=== PATIENT | male | born 1945 | race Caucasian/White ===

== ENCOUNTER 2021-12-31 11:43 | Emergency (ER) | payer MEDICARE, BC ==
[~2021-12-31] VITALS: Ht 175.3 cm; Wt 97.5 kg
[~2021-12-31 11:43] MED LIST: ACYC400T5 PO; ALLO100T PO; ASPI-1169 PO; CHOL50004 PO; CYAN100T44 PO; DOXY100T28 PO; LENA10CA PO; OMEG1CAP PO; PANT40TA49 PO; PRED20TA PO; TAMS0.4C34 PO; VITA400C68 PO
[2021-12-31 11:52] VITALS: BP 145/90
--- NOTE | 2021-12-31 11:58 | NUR ---
The patient bibs for c/o R eye injury(hematoma) s/p falling off his bed 2 [address] ago[address] wants head ct per opthalmologist he saw today. The patient is alert and oriented x4. Denies pain. Will continue to monitor the patient.
--- NOTE | 2021-12-31 13:28 | NUR ---
Patient discharged to home in stable condition. Written and verbal after care instructions given. Patient verbalizes understanding of instruction.
== END 2021-12-31 13:28 | disposition home or self-care (01) ==
LOC: ER 11:56
DX: H11.31 Conjunctival hemorrhage, right eye (principal); R51.9 Headache, unspecified; Z79.899 Other long term (current) drug therapy; W01.0XXA Fall on same level from slipping, tripping and stumbling without subsequent striking against object, initial encounter; Y93.89 Activity, other specified; Y92.89 Other specified places as the place of occurrence of the external cause; Y99.8 Other external cause status
CPT/HCPCS: 70450-TC; 70486-TC

== ENCOUNTER 2022-04-03 07:57 | Emergency (ER) | payer MEDICARE, BC ==
[~2022-04-03] VITALS: Ht 175.3 cm; Wt 99.8 kg
--- NOTE | 2022-04-03 08:18 | NUR ---
URINE COLLECTED AND PLACED IN DROP-OFF BIN
[2022-04-03] MEDS ORDERED: IV NS 0.9% 1,000 ML BAG IV ONE (08:30)
[2022-04-03] MEDS ORDERED: KETOROLAC TROMETHAMINE INJ 30 MG/ML VIAL IV ONE (08:30)
[2022-04-03] MEDS ORDERED: KETOROLAC TROMETHAMINE INJ 30 MG/ML VIAL ONE (08:30)
--- NOTE | 2022-04-03 08:53 | NUR ---
BLOOD SAMPLE COLLECTED
--- NOTE | 2022-04-03 08:54 | NUR ---
20 G SL INSERTED IN L AC
[2022-04-03] MEDS ORDERED: ROSU40TA23 PO (08:56)
[2022-04-03] MEDS ORDERED: LORA-259 PO (08:56)
[2022-04-03 09:03] LABS: BASOPHILS % (AUTO) 0.3 % (0.0-2.0); EOSINOPHILS % (AUTO) 0.1 % (0.0-6.0); HEMATOCRIT 35 % (39-51); HEMOGLOBIN 12.1 g/dL (13.5-17.5); LYMPHOCYTES % (AUTO) 14.6 % (20.0-44.0); MEAN CORPUSCULAR HGB CONC 35 g/dl (31.0-36.0); MEAN CORPUSCULAR VOLUME 97 fL (80-96); MONOCYTES # (AUTO) 0.4 K/uL (0.1-1.30); NEUTROPHILS # (AUTO) 5.3 K/uL (1.8-8.9); PLATELET COUNT (AUTO) 114 K/uL (150-450); RED BLOOD CELL COUNT(AUTO) 3.57 MIL/uL (4.5-6.0); WHITE BLOOD COUNT (AUTO) 6.7 K/uL (4.3-11.0)
[2022-04-03 09:04] LABS: BILIRUBIN,URINE NEGATIVE (NEGATIVE); COLOR,URINE YELLOW (YELLOW); LEUKOCYTE ESTERASE ,URINE SMALL (NEGATIVE); NITRITE, URINE POSITIVE (NEGATIVE); PROTEIN,URINE TRACE mg/dl (NEGATIVE); UGLUCOSE NEGATIVE (NEGATIVE); UROBILINOGEN,URINE 0.2 EU/dL (0.2)
[2022-04-03 09:12] LABS: CALCIUM, SERUM 8.8 mg/dL (8.5-10.1); POTASSIUM 4.2 mmol/L (3.5-5.1)
[2022-04-03 09:17] LABS: ALBUMIN 3.8 g/dL (3.4-5.0); BILIRUBIN,DIRECT 0.3 mg/dL (0.0-0.2); BILIRUBIN,TOTAL 1.3 mg/dL (0.2-1.0); TOTAL PROTEIN, SERUM 7.6 g/dL (6.4-8.2)
[2022-04-03 09:21] LABS: BACTERIA,URINE 3+ /HPF (None Seen); WBC,URINE 21-50 /HPF (0-3)
[2022-04-03] MEDS ORDERED: CIPROFLOXACIN HCL 250 MG TABLET PO ONE (10:00)
[2022-04-03] MEDS ORDERED: CIPROFLOXACIN HCL 500 MG TABLET ONE (10:02)
[2022-04-03] MEDS ORDERED: CIPR-262 PO (10:11)
[2022-04-03 10:23] VITALS: BP 115/74
--- NOTE | 2022-04-03 10:24 | NUR ---
Patient discharged to home in stable condition. Written and verbal after care instructions given. Patient verbalizes understanding of instruction. Prescription given. IV line removed.
== END 2022-04-03 10:24 | disposition home or self-care (01) ==
LOC: ER 08:02
DX: N39.0 Urinary tract infection, site not specified (principal); Z79.899 Other long term (current) drug therapy
CPT/HCPCS: 99284; 96374; 71045; 96361; 85025; 80048; 87086; 83605; 80076; 81001; 36415; 85730; J1885; J7030

== ENCOUNTER 2022-04-09 20:20 | Emergency (ER) | payer MEDICARE, BC ==
[~2022-04-09] VITALS: Ht 175.3 cm; Wt 99.8 kg
[~2022-04-09 20:20] MED LIST changes: +CIPR-262 PO; -DOXY100T28 PO; -LENA10CA PO; +LORA-259 PO; -PRED20TA PO; +ROSU40TA23 PO; -TAMS0.4C34 PO
--- NOTE | 2022-04-09 21:50 | NUR ---
BIBWIFE C/O FEVER AND CHILLS. DAY 4 IN TREATMENT FOR ORAL CIPROFLOXACIN. AMBULATORY, PLACED ON BED, AAOX4, BREATHING EVEN AND UNLABORED SATURATING AT 96%RA
--- NOTE | 2022-04-09 22:13 | NUR ---
BLOOD DRAWN AND URINE SAMPLE SENT TO LAB
--- NOTE | 2022-04-09 22:22 | NUR ---
X-RAY TECH. AT BEDSIDE
[2022-04-09 22:23] LABS: BASOPHILS % (AUTO) 0.1 % (0.0-2.0); EOSINOPHILS % (AUTO) 0.1 % (0.0-6.0); HEMATOCRIT 31 % (39-51); HEMOGLOBIN 10.6 g/dL (13.5-17.5); LYMPHOCYTES # (AUTO) 0.5 K/uL (0.8-4.8); LYMPHOCYTES % (AUTO) 10.7 % (20.0-44.0); MEAN CORPUSCULAR HGB CONC 34 g/dl (31.0-36.0); MEAN CORPUSCULAR VOLUME 96 fL (80-96); MONOCYTES # (AUTO) 0.4 K/uL (0.1-1.30); NEUTROPHILS # (AUTO) 4.2 K/uL (1.8-8.9); NEUTROPHILS % (AUTO) 82.1 % (43.0-81.0); PLATELET COUNT (AUTO) 91 K/uL (150-450); RED BLOOD CELL COUNT(AUTO) 3.21 MIL/uL (4.5-6.0); WHITE BLOOD COUNT (AUTO) 5.1 K/uL (4.3-11.0)
[2022-04-09 22:31] LABS: BILIRUBIN,URINE NEGATIVE (NEGATIVE); COLOR,URINE YELLOW (YELLOW); LEUKOCYTE ESTERASE ,URINE MODERATE (NEGATIVE); NITRITE, URINE POSITIVE (NEGATIVE); PROTEIN,URINE TRACE mg/dl (NEGATIVE); UGLUCOSE NEGATIVE (NEGATIVE)
[2022-04-09 22:40] LABS: ALANINE AMINOTRANSFERASE 69 U/L (12-78); ALBUMIN 3.4 g/dL (3.4-5.0); ALKALINE PHOSPHATASE 84 U/L (46-116); ASPARTATE AMINOTRANSFERASE 29 U/L (15-37); BILIRUBIN,DIRECT 0.2 mg/dL (0.0-0.2); BILIRUBIN,TOTAL 0.7 mg/dL (0.2-1.0); CALCIUM, SERUM 8.4 mg/dL (8.5-10.1); CARBON DIOXIDE 30 mmol/L (21-32); CHLORIDE 100 mmol/L (98-107); CREATININE 0.9 mg/dL (0.6-1.3); GLUCOSE 108 mg/dL (74-106); POTASSIUM 4.2 mmol/L (3.5-5.1); SODIUM SERUM 135 mmol/L (136-145); TOTAL PROTEIN, SERUM 7.3 g/dL (6.4-8.2); UREA NITROGEN, BLOOD 16 mg/dL (7-18)
[2022-04-09 22:51] VITALS: BP 113/68
[2022-04-10] MEDS ORDERED: NITROFURANTOIN/MONOHYDRATE MACROCRYSTALS 100 MG CAPSULE ONE (00:23)
[2022-04-10] MEDS: NITROFURANTOIN/MONOHYDRATE MACROCRYSTALS 100 MG CAPSULE PO ONE (00:25)
[2022-04-10] MEDS ORDERED: NITR100C PO (00:26)
--- NOTE | 2022-04-10 01:03 | NUR ---
IV CANNULA REMOVED
--- NOTE | 2022-04-10 01:03 | NUR ---
Patient discharged to home in stable condition. Written and verbal after care instructions given. Patient verbalizes understanding of instruction.
[2022-04-10 07:22] LABS: BACTERIA,URINE Few /HPF (None Seen); RBC,URINE NONE SEEN /HPF (0-2)
[2022-04-10 11:48] LABS: LYMPHOCYTES % (MANUAL) 16 % (16-48); MONOCYTES % (MANUAL) 5 % (0-11.0); NEUTROPHILS % (MANUAL) 79 (42-76)
== END 2022-04-10 01:39 | disposition home or self-care (01) ==
LOC: ER 20:31
DX: N39.0 Urinary tract infection, site not specified (principal); Z79.899 Other long term (current) drug therapy
CPT/HCPCS: 36415; 71045-TC; 80048-TC; 80076-TC; 81001; 83605-TC; 84484-TC; 85025-TC; 85730-TC; 87040-TC; 87086-TC; 87186-TC

== ENCOUNTER 2022-10-02 12:54 | Emergency (ER) | payer MEDICARE, BC ==
[~2022-10-02 12:54] MED LIST changes: +NITR100C PO
--- NOTE | 2022-10-02 13:19 | NUR ---
called to triage,admitting said that patient left after signing in
== END 2022-10-02 13:25 | disposition left against medical advice (07) ==
LOC: ER 12:58
DX: Z53.21 Procedure and treatment not carried out due to patient leaving prior to being seen by health care provider (principal)

== ENCOUNTER 2023-04-18 23:25 | Emergency (ER) | payer MEDICARE, BC ==
[~2023-04-18] VITALS: Ht 170.2 cm; Wt 99.8 kg
[2023-04-19] MEDS ORDERED: FAMOTIDINE (20 MG) 20 MG TABLET ONE (00:18)
[2023-04-19] MEDS ORDERED: MAG HYDROX/AL HYDROX/SIMETH 30 ML UDC ONE (00:18)
[2023-04-19] MEDS ORDERED: FAMOTIDINE (20 MG) 20 MG TABLET PO ONE (00:30)
[2023-04-19] MEDS ORDERED: MAG HYDROX/AL HYDROX/SIMETH 30 ML UDC PO ONE (00:30)
[2023-04-19 00:50] LABS: BASOPHILS % (AUTO) 0.2 % (0.0-2.0); EOSINOPHILS % (AUTO) 0.4 % (0.0-6.0); HEMATOCRIT 31 % (39-51); HEMOGLOBIN 10.6 g/dL (13.5-17.5); LYMPHOCYTES # (AUTO) 1.6 K/uL (0.8-4.8); LYMPHOCYTES % (AUTO) 36.9 % (20.0-44.0); MEAN CORPUSCULAR HEMOGLOBIN 32 PG (26.0-33.0); MEAN CORPUSCULAR HGB CONC 34 g/dl (31.0-36.0); MEAN CORPUSCULAR VOLUME 94 fL (80-96); MONOCYTES # (AUTO) 0.4 K/uL (0.1-1.30); MONOCYTES % (AUTO) 8.5 % (2.0-12.0); NEUTROPHILS # (AUTO) 2.3 K/uL (1.8-8.9); PLATELET COUNT (AUTO) 165 K/uL (150-450); RED CELL DISTRIBUTION WIDTH 14.7 % (11.5-15.0); WHITE BLOOD COUNT (AUTO) 4.3 K/uL (4.3-11.0)
[2023-04-19 01:01] LABS: CALCIUM, SERUM 8.5 mg/dL (8.5-10.1); CARBON DIOXIDE 27 mmol/L (21-32); CHLORIDE 101 mmol/L (98-107); CREATININE 0.9 mg/dL (0.6-1.3); GLUCOSE 108 mg/dL (74-106); SODIUM SERUM 136 mmol/L (136-145); UREA NITROGEN, BLOOD 15 mg/dL (7-18)
[2023-04-19] MEDS ORDERED: DEXT15SY8 PO (03:15)
[2023-04-19 03:25] VITALS: BP 135/95; TEMP 98.2; O2SAT 97
== END 2023-04-19 03:27 | disposition home or self-care (01) ==
LOC: ER 23:26
DX: K21.9 Gastro-esophageal reflux disease without esophagitis (principal); R05.3 Chronic cough; R11.10 Vomiting, unspecified
CPT/HCPCS: 36415; 71045-TC; 80048-TC; 84484-TC; 85025-TC

== ENCOUNTER 2023-07-30 03:18 | Emergency (ER) | payer MEDICARE, BC ==
[~2023-07-30] VITALS: Ht 175.3 cm; Wt 99.8 kg
[~2023-07-30 03:18] MED LIST changes: +DEXT15SY8 PO
[2023-07-30] MEDS ORDERED: LIDOCAINE 2% JEL UROJET 10 ML MM ONE (03:55)
[2023-07-30 05:21] LABS: APPEARANCE,URINE SLIGHTLY CLOUDY (CLEAR); BILIRUBIN,URINE NEGATIVE (NEGATIVE); BLOOD, URINE TRACE-INTA Ery/uL (NEGATIVE); COLOR,URINE DARK YELLOW (YELLOW); KETONES,URINE TRACE mg/dL (NEGATIVE); LEUKOCYTE ESTERASE ,URINE NEGATIVE (NEGATIVE); NITRITE, URINE POSITIVE (NEGATIVE); PH,URINE 5.5 (5.0-8.0); PROTEIN,URINE 1+ mg/dl (NEGATIVE); UGLUCOSE TRACE mg/dL (NEGATIVE)
[2023-07-30 05:29] LABS: ADD URINE CULTURE YES; BACTERIA,URINE Few /HPF (None Seen); SQUAMOUS EPITHELIAL CELL,UR Rare /HPF (None Seen)
[2023-07-30] MEDS ORDERED: CIPR-262 PO (05:31)
[2023-07-30] MEDS ORDERED: CIPROFLOXACIN HCL 500 MG TABLET ONE (05:37)
[2023-07-30] MEDS: CIPROFLOXACIN HCL 500 MG TABLET PO ONE (05:38)
[2023-07-30 05:53] VITALS: BP 134/87; TEMP 98; O2SAT 97
== END 2023-07-30 05:54 | disposition home or self-care (01) ==
LOC: ER 03:30
DX: N39.0 Urinary tract infection, site not specified (principal); R33.9 Retention of urine, unspecified; Z87.440 Personal history of urinary (tract) infections
CPT/HCPCS: 99284; 51701; 87086; 81001; J3490

== ENCOUNTER 2024-03-31 11:58 | Emergency (ER) | payer MEDICARE, BC ==
[~2024-03-31] VITALS: Ht 175.3 cm; Wt 113.4 kg
[2024-03-31 13:22] LABS: BASOPHILS % (AUTO) 0.1 % (0.0-2.0); EOSINOPHILS % (AUTO) 0.1 % (0.0-6.0); HEMATOCRIT 24 % (39-51); HEMOGLOBIN 8.5 g/dL (13.5-17.5); LYMPHOCYTES # (AUTO) 0.8 K/uL (0.8-4.8); LYMPHOCYTES % (AUTO) 14.4 % (20.0-44.0); MEAN CORPUSCULAR HEMOGLOBIN 32 PG (26.0-33.0); MEAN CORPUSCULAR HGB CONC 35 g/dl (31.0-36.0); MEAN CORPUSCULAR VOLUME 92 fL (80-96); MONOCYTES # (AUTO) 0.2 K/uL (0.1-1.30); NEUTROPHILS # (AUTO) 4.2 K/uL (1.8-8.9); NEUTROPHILS % (AUTO) 81.4 % (43.0-81.0); PLATELET COUNT (AUTO) 127 K/uL (150-450); RED BLOOD CELL COUNT(AUTO) 2.66 MIL/uL (4.5-6.0); RED CELL DISTRIBUTION WIDTH 17.4 % (11.5-15.0); WHITE BLOOD COUNT (AUTO) 5.2 K/uL (4.3-11.0)
[2024-03-31] MEDS ORDERED: MORPHINE SULFATE INJ 2 MG/ML DISP.SYRIN ONE (13:26)
[2024-03-31 13:30] LABS: CALCIUM, SERUM 8.2 mg/dL (8.5-10.1); CARBON DIOXIDE 27 mmol/L (21-32); CHLORIDE 102 mmol/L (98-107); CREATININE 0.9 mg/dL (0.6-1.3); GLUCOSE 129 mg/dL (74-106); SODIUM SERUM 138 mmol/L (136-145); UREA NITROGEN, BLOOD 11 mg/dL (7-18)
[2024-03-31] MEDS: IV NS 0.9% 1,000 ML BAG IV ONE (13:45)
[2024-03-31] MEDS: MORPHINE SULFATE INJ 2 MG/ML DISP.SYRIN IV ONE ×2 (13:46→15:40)
[2024-03-31] MEDS ORDERED: MORPHINE SULFATE INJ 4 MG/ML DISP.SYRIN ONE (15:35)
[2024-03-31 17:21] LABS: APPEARANCE,URINE CLEAR (CLEAR); BILIRUBIN,URINE 1+ (NEGATIVE); BLOOD, URINE 1+ Ery/uL (NEGATIVE); COLOR,URINE YELLOW (YELLOW); KETONES,URINE 1+ mg/dL (NEGATIVE); LEUKOCYTE ESTERASE ,URINE NEGATIVE (NEGATIVE); NITRITE, URINE NEGATIVE (NEGATIVE); PROTEIN,URINE 1+ mg/dl (NEGATIVE); UGLUCOSE NEGATIVE (NEGATIVE); UROBILINOGEN,URINE 0.2 EU/dL (0.2)
[2024-03-31 17:27] LABS: ADD URINE CULTURE NO; BACTERIA,URINE Few /HPF (None Seen); SQUAMOUS EPITHELIAL CELL,UR Rare /HPF (None Seen)
[2024-03-31] MEDS ORDERED: KETO10TA2 PO (20:37)
[2024-03-31] MEDS ORDERED: OXYB10TA30 PO (20:37)
[2024-03-31] MEDS ORDERED: SULF1TAB48 PO (20:37)
[2024-03-31 21:13] VITALS: BP 123/85; TEMP 98.7; O2SAT 99
== END 2024-03-31 21:14 | disposition home or self-care (01) ==
LOC: ER 12:13
DX: T83.098A Other mechanical complication of other urinary catheter, initial encounter (principal); R10.2 Pelvic and perineal pain; N40.0 Benign prostatic hyperplasia without lower urinary tract symptoms; Z79.624 Long term (current) use of inhibitors of nucleotide synthesis; Z79.82 Long term (current) use of aspirin; Z85.46 Personal history of malignant neoplasm of prostate; Z87.440 Personal history of urinary (tract) infections; Z90.79 Acquired absence of other genital organ(s); Y84.8 Other medical procedures as the cause of abnormal reaction of the patient, or of later complication, without mention of misadventure at the time of the procedure; Y92.89 Other specified places as the place of occurrence of the external cause
CPT/HCPCS: 99285; 74176; 96374; 76770; 96361; 96376; 85025; 80048; 81001; 36415; 72192; J2270 ×2; J7030; A4349 ×2

== ENCOUNTER 2024-09-12 13:19 | Emergency (ER) | payer BC, MEDICARE ==
[~2024-09-12] VITALS: Ht 175.3 cm; Wt 97.5 kg
[~2024-09-12 13:19] MED LIST changes: +KETO10TA2 PO; +OXYB10TA30 PO; +SULF1TAB48 PO
[2024-09-12 13:33] VITALS: TEMP 97.8
[2024-09-12 13:37] VITALS: BP 123/74; O2SAT 97
== END 2024-09-12 14:23 | disposition home or self-care (01) ==
LOC: ER 13:33
DX: Z45.2 Encounter for adjustment and management of vascular access device (principal); N40.0 Benign prostatic hyperplasia without lower urinary tract symptoms; Z79.624 Long term (current) use of inhibitors of nucleotide synthesis; Z79.82 Long term (current) use of aspirin; Z79.899 Other long term (current) drug therapy; Z87.440 Personal history of urinary (tract) infections; Z90.79 Acquired absence of other genital organ(s)